=== PATIENT | male | born 1940 | race Caucasian/White ===

== ENCOUNTER 2017-09-28 15:41 | Emergency (ER) | payer MEDICARE, OTHER ==
[2017-09-28] MEDS ORDERED: DIPH/PERTUSS(ACELL)/TETANUS VAC/PF 0.5 ML SYR (>=10YO) IM ONE (15:59)
--- NOTE | 2017-09-28 16:00 | ER Document Report ---
ED Medical Screen (RME) - General Chief Complaint: Fall Injury Stated Complaint: FALL/FACIAL INJURY Time Seen by Provider: 09/28/17 15:59 Mode of Arrival: Ambulatory Information source: Patient Notes: Patient fell going up steps and hit his face on a board. Patient with laceration to bridge of nose. There was no loss of consciousness, no nausea or vomiting. I have greeted and performed a rapid initial assessment of this patient. A comprehensive ED assessment and evaluation of the patient, analysis of test results and completion of the medical decision making process will be conducted by additional ED providers. TRAVEL OUTSIDE OF THE [place] IN LAST 30 DAYS: No - Related Data Allergies/Adverse Reactions: No Known Allergies Allergy (Verified 09/28/17 15:42) Past Medical History - Past Medical History Cardiac Medical History: Reports: Hx Hypercholesterolemia, Hx Hypertension Pulmonary Medical History: Denies: Hx Tuberculosis Neurological Medical History: Denies: Hx Seizures Renal/ Medical History: Reports: Hx Kidney Stones. Denies: Hx Peritoneal Dialysis Past Surgical History: Reports: Hx Abdominal Surgery - hernia, Hx Cardiac Surgery - stent 05/03. Denies: Hx Pacemaker - Immunizations Hx Diphtheria, Pertussis, Tetanus Vaccination: No Physical Exam - Vital signs Vitals: Temp Pulse Resp BP Pulse Ox 98.0 F 74 16 148/80 H 98 09/28/17 15:46 09/28/17 15:46 09/28/17 15:46 09/28/17 15:46 09/28/17 15:46 - Skin Skin irregularity: Laceration - Laceration to bridge of nose Course - Vital Signs Vital signs: Temp Pulse Resp BP Pulse Ox 98.0 F 74 16 148/80 H 98 09/28/17 15:46 09/28/17 15:46 09/28/17 15:46 09/28/17 15:46 09/28/17 15:46
--- NOTE | 2017-09-28 16:42 | RADIOLOGY REPORT (SQ) ---
EXAM DESCRIPTION: CT FACIAL AREA WITHOUT COMPLETED DATE/TIME: 09/28/2017 4:32 pm REASON FOR STUDY: fall, facial injury COMPARISON: None. TECHNIQUE: Noncontrasted images through the facial bones and orbits windowed for bone and soft tissu e. Additional coronal and sagittal reconstructed images reviewed. All images stored on PACS. All CT scanners at this facility use dose modulation, iterative reconstruction, and/or weight based d osing when appropriate to reduce radiation dose to as low as reasonably achievable (ALARA). [facility]: Dose Right [facility]: CareDose [facility]: Dose Right [facility]: Teradose 4D [facility]: [employer] RADIATION DOSE: CT Rad equipment meets quality standard of care and radiation dose reduction techniq ues were employed. CTDIvol: 30.4 mGy. DLP: 638 mGy-cm. mGy. LIMITATIONS: None. FINDINGS: FACIAL BONES: Nondisplaced fracture of the anterior maxillary wall. There is a crack in t he right orbital floor. No intra ocular muscle entrapment. ORBITS: See above. PARANASAL SINUSES: Fluid in the right ethmoid and maxillary sinuses. SOFT TISSUES: No foreign body. INFERIOR BRAIN: See separate report of the same date. OTHER: No other significant finding. IMPRESSION: Nondisplaced fractures of the right anterior maxilla and orbital floor. TECHNICAL DOCUMENTATION: JOB ID: [id number] Quality ID # [id number]: Final reports with documentation of one or more dose reduction techniques (e.g., Au tomated exposure control, adjustment of the mA and/or kV according to patient size, use of iterative reconstruction technique) 2010 [employer]- All Rights Reserved Reading location - IP/workstation name: [email or web address]
--- NOTE | 2017-09-28 16:49 | RADIOLOGY REPORT (SQ) ---
EXAM DESCRIPTION: CT HEAD WITHOUT COMPLETED DATE/TIME: 09/28/2017 4:32 pm REASON FOR STUDY: fall, facial injury COMPARISON: None. TECHNIQUE: Axial images acquired through the brain without intravenous contrast. Images reviewed wi th bone, brain and subdural windows. Images stored on PACS. All CT scanners at this facility use dose modulation, iterative reconstruction, and/or weight based d osing when appropriate to reduce radiation dose to as low as reasonably achievable (ALARA). [facility]: Dose Right [facility]: CareDose [facility]: Dose Right [facility]: Teradose 4D [facility]: Smart [employer] RADIATION DOSE: CT Rad equipment meets quality standard of care and radiation dose reduction techniq ues were employed. CTDIvol: 64.3 mGy. DLP: 1163 mGy-cm.mGy. LIMITATIONS: None. FINDINGS: VENTRICLES: Prominent. CEREBRUM: No masses. No hemorrhage. No midline shift. Areas of low density in the white matter mos t likely due to chronic micro-vascular ischemic change. No evidence for acute infarction. CEREBELLUM: No masses. No hemorrhage. No alteration of density. No evidence for acute infarction. EXTRAAXIAL SPACES: Age-related involutional change. No fluid collections. No masses. ORBITS AND GLOBE: No intra- or extraconal masses. Normal contour of globe without masses. CALVARIUM: No fracture. PARANASAL SINUSES: No fluid or mucosal thickening. SOFT TISSUES: See separate facial bone CT report of the same date OTHER: No other significant finding. IMPRESSION: No acute abnormality in the brain. EVIDENCE OF ACUTE STROKE: NO. TECHNICAL DOCUMENTATION: JOB ID: [id number] Quality ID # [id number]: Final reports with documentation of one or more dose reduction techniques (e.g., Au tomated exposure control, adjustment of the mA and/or kV according to patient size, use of iterative reconstruction technique) 2010 [email or web address]- All Rights Reserved Reading location - IP/workstation name: [email or web address]
--- NOTE | 2017-09-28 16:50 | RADIOLOGY REPORT (SQ) ---
EXAM DESCRIPTION: CT CERVICAL SPINE WITHOUT COMPLETED DATE/TIME: 09/28/2017 4:32 pm REASON FOR STUDY: fall, facial injury COMPARISON: None. TECHNIQUE: Axial images acquired through the cervical spine without intravenous contrast. Images re viewed with lung, soft tissue and bone windows. Reconstructed coronal and sagittal MPR images review ed. Images stored on PACS. All CT scanners at this facility use dose modulation, iterative reconstruction, and/or weight based d osing when appropriate to reduce radiation dose to as low as reasonably achievable (ALARA). [facility]: Dose Right [facility]: CareDose [facility]: Dose Right [facility]: Teradose 4D [facility]: [employer] RADIATION DOSE: CT Rad equipment meets quality standard of care and radiation dose reduction techniq ues were employed. CTDIvol: 21.3 mGy. DLP: 479 mGy-cm. mGy. LIMITATIONS: Patient movement in the scanner. FINDINGS: ALIGNMENT: Anatomic. MINERALIZATION: Normal. VERTEBRAL BODIES: No fractures or dislocation. DISCS: Multilevel disc space narrowing with osteophytes. FACETS, LATERAL MASSES, POSTERIOR ELEMENTS: Facet arthropathy. No fractures. No dislocation. No ac an findings. HARDWARE: None in the spine. VISUALIZED RIBS: No fractures. LUNG APICES AND SOFT TISSUES: No significant or acute findings. OTHER: No other significant finding. IMPRESSION: CHRONIC DEGENERATIVE CHANGES. NO ACUTE FINDINGS. TECHNICAL DOCUMENTATION: JOB ID: [id number] Quality ID # [id number]: Final reports with documentation of one or more dose reduction techniques (e.g., Au tomated exposure control, adjustment of the mA and/or kV according to patient size, use of iterative reconstruction technique) 2010 [employer]- All Rights Reserved Reading location - IP/workstation name: [email or web address]
--- NOTE | 2017-09-28 16:58 | ER Document Report ---
ED Fall - General Chief Complaint: Fall Injury Stated Complaint: FALL/FACIAL INJURY Time Seen by Provider: 09/28/17 15:59 Mode of Arrival: Ambulatory Information source: Patient Notes: 77-year-old male tripped. Fell down. Board hitting him in the face. Did not lose consciousness. Has laceration on his nose. Pain under right eye. Bruising to the face. Denies any other injuries at this time. TRAVEL OUTSIDE OF THE [place] IN LAST 30 DAYS: No - HPI Occurred: Just prior to arrival Where: Home Context: Tripped Associated symptoms: None - Related data Allergies/Adverse Reactions: No Known Allergies Allergy (Verified 09/28/17 15:42) Past Medical History - General Information source: Patient - Social History Smoking Status: Never Smoker Cigarette use (# per day): No Frequency of alcohol use: None Drug Abuse: None Lives with: Family Family History: Reviewed & Not Pertinent Patient has suicidal ideation: No Patient has homicidal ideation: No - Past Medical History Cardiac Medical History: Reports: Hx Hypercholesterolemia, Hx Hypertension Pulmonary Medical History: Denies: Hx Tuberculosis Neurological Medical History: Denies: Hx Seizures Renal/ Medical History: Reports: Hx Kidney Stones. Denies: Hx Peritoneal Dialysis Past Surgical History: Reports: Hx Abdominal Surgery - hernia, Hx Cardiac Surgery - stent 05/03. Denies: Hx Pacemaker - Immunizations Hx Diphtheria, Pertussis, Tetanus Vaccination: No Hx Pneumococcal Vaccination: 07/23/11 Review of Systems - Review of Systems Constitutional: denies: Chills, Malaise, Weakness EENT: See HPI. denies: Eye pain, Double vision, Ear pain, Throat pain, Difficulty swallowing, Throat swelling, Mouth pain Cardiovascular: denies: Chest pain, Palpitations, Heart racing, Dyspnea Respiratory: denies: Cough, Hurts to breathe, Hemoptysis, Short of breath, Wheezing Gastrointestinal: denies: Abdominal pain, Diarrhea, Nausea, Vomiting Musculoskeletal: denies: Back pain, Joint pain, Joint swelling, Muscle pain, Muscle stiffness Skin: Other - Laceration to face. denies: Lesions Hematologic/Lymphatic: denies: Anemia, Blood clots, Easy bleeding, Easy bruising Neurological/Psychological: denies: Confusion, Dementia, Depression, Weakness, Headaches, Numbness Physical Exam - Vital signs Vitals: Temp Pulse Resp BP Pulse Ox 98.0 F 74 16 148/80 H 98 09/28/17 15:46 09/28/17 15:46 09/28/17 15:46 09/28/17 15:46 09/28/17 15:46 Interpretation: Normal - General General appearance: Appears well, Alert - HEENT Head: Normocephalic Eyes: Normal Pupils: PERRL Notes: he has tenderness to palpation to the nasal bridge. Tenderness underneath the right eye and right orbit. Tenderness in the right maxillary face. There is a 1.5 cm stellate laceration at the glabella/nasal bridge. - Respiratory Respiratory status: No respiratory distress Chest status: Nontender Breath sounds: Normal Chest palpation: Normal - Cardiovascular Rhythm: Regular Heart sounds: Normal auscultation Murmur: No - Abdominal Inspection: Normal Distension: No distension Bowel sounds: Normal Tenderness: Nontender Organomegaly: No organomegaly - Back Back: Normal, Nontender - Extremities General upper extremity: Normal inspection, Nontender, Normal color, Normal ROM , Normal temperature General lower extremity: Normal inspection, Nontender, Normal color, Normal ROM , Normal temperature, Normal weight bearing. No: Sam's sign - Neurological Neuro grossly intact: Yes Cognition: Normal Orientation: AAOx4 Rosita Coma Scale Eye Opening: Spontaneous Rosita Coma Scale Verbal: Oriented Rosita Coma Scale Motor: Obeys Commands [place] Coma Scale Total: 15 Speech: Normal Motor strength normal: LUE, RUE, LLE, RLE Sensory: Normal - Psychological Associated symptoms: Normal affect, Normal mood - Skin Skin Temperature: Warm Skin Moisture: Dry Skin Color: Normal Course - Re-evaluation Re-evalutation: 09/28/17 18:40 CT head, face, C-spine ordered. CT face shows inferior orbital wall fracture with maxillary sinus fracture. Consulting with ENT at this time. Laceration will be repaired - Vital Signs Vital signs: Temp Pulse Resp BP Pulse Ox 98.0 F 74 16 148/80 H 98 09/28/17 15:46 09/28/17 15:46 09/28/17 15:46 09/28/17 15:46 09/28/17 15:46 Procedures - Laceration/Wound Repair Face Time completed: 18:41 Wound length (cm): 1.5 Wound's Depth, Shape: Irregular, Stellate Anesthetic type: 1% Lidocaine Volume Anesthetic (mLs): 3 Wound explored: Clean Irrigated w/ Saline (mLs): 250 Wound Repaired With: Sutures Suture Size/Type: 4:0, Prolene Number of Sutures: 5 Layer Closure?: No Discharge - Discharge Clinical Impression: Laceration of nose Qualifiers: Encounter type: initial encounter Qualified Code(s): S01.21XA - Laceration without foreign body of nose, initial encounter Orbital floor fracture Qualifiers: Encounter type: initial encounter Fracture type: closed Laterality: right Qualified Code(s): S02.31XA - Fracture of orbital floor, right side, initial encounter for closed fracture Maxillary sinus fracture Qualifiers: Encounter type: initial encounter Fracture type: closed Qualified Code(s): S02.401A - Maxillary fracture, unspecified side, initial encounter for closed fracture Disposition: HOME, SELF-CARE Instructions: Facial Bone Fracture, Displaced ([facility]), Facial Laceration ([facility]), Oral Narcotic Medication ([facility]), Tetanus Immunization Given ([facility]) Additional Instructions: Please follow a soft chew diet for 2 weeks. Follow up with an oral surgeon DOLORES. Information for a oral surgeon in the area is provided below. Prescriptions: Amox Tr/Potassium Clavulanate [Augmentin 875-125 Tablet] 1 tab PO BID 7 Days # 14 tablet Hydrocodone/Acetaminophen [[place] 5-325 mg Tablet] 1 tab PO TID PRN 5 Days #15 tablet PRN Reason: For Pain Scale 2-3 Referrals: SUSAN CASAS MD [ACTIVE STAFF] - Follow up in 3-5 days
[2017-09-28] MEDS ORDERED: LIDOCAINE 1% INJ-PF (10 MG/ML) 30 ML SDV INJ ONE (17:02)
[2017-09-28] MEDS ORDERED: HYDROCODONE/ACETAMINOPHEN 5-325 MG TABLET PO ONE (18:40)
[2017-09-28 20:04] VITALS: BP 133/87
== END 2017-09-28 19:50 | disposition home or self-care (01) ==
LOC: ER 15:41
PROC: 0HQ1XZZ Repair Face Skin, External Approach (ICD-10-PCS; principal; 2017-09-28)
DX: S01.21XA Laceration without foreign body of nose, initial encounter (principal); S02.31XA Fracture of orbital floor, right side, initial encounter for closed fracture; S02.401A Maxillary fracture, unspecified side, initial encounter for closed fracture; W01.0XXA Fall on same level from slipping, tripping and stumbling without subsequent striking against object, initial encounter; I10 Essential (primary) hypertension; E78.00 Pure hypercholesterolemia, unspecified; Z23 Encounter for immunization; Z87.442 Personal history of urinary calculi
CPT/HCPCS: 99284; 90471; 70450; 70486; 72125; 90715; 12011; J3490; A9270